=== PATIENT | male | born 1965 | race Caucasian/White ===

== ENCOUNTER 2018-02-25 18:53 | Inpatient (IN) | payer OTHER ==
[~2018-02-25] VITALS: Ht 160 cm; Wt 78.0 kg
[2018-02-25 19:20] VITALS: BP 120/70; PULSE 92; RESP 18; TEMP 99.7; O2SAT 97
[2018-02-25 19:27] VITALS: BP 133/79; PULSE 97; RESP 18; O2SAT 97
[2018-02-25] MEDS ORDERED: SODIUM CHLOR 0.9% 1000 ML INJ 1,000 ML IV SCH (19:43)
[2018-02-25] MEDS ORDERED: ONDANSETRON ODT 4 MG TAB PO ONE (19:45)
[2018-02-25] MEDS ORDERED: SODIUM CHLORIDE 0.9% FLUSH 10 ML FLUSH IV FLUSH PRN ×2 (19:45→23:00)
[2018-02-25] MEDS ORDERED: MORPHINE SULFATE 4 MG/ML INJ IV PUSH ONE (19:45)
--- NOTE | 2018-02-25 19:46 | PD ---
HPI Chief Complaint: Abdominal Pain Time Seen by Provider: 19:24 Travel History International Travel<30 days: No Contact w/Intl Traveler<30days: No Traveled to known affect area: No History of Present Illness HPI This is a 53-year-old male who presents to the emergency department with abdominal pain that started yesterday, severe, sharp, and the lower abdomen, constant, nonradiating associated with some nausea. He took an enema last night thinking maybe he was constipated but he did not produce much stool. PFSH Past Surgical History Other Surgery: Yes (esophagus dilated 4 times.) Social History Alcohol Use: Yes (rarely) Tobacco Use: No Substance Use: No Allergies-Medications (Allergen,Severity, Reaction): Coded Allergies: No Known Allergies (Unverified , 02/25/18) Review of Systems Except as stated in HPI: all other systems reviewed are Neg Physical Exam Narrative GENERAL: Uncomfortable appearing. SKIN: Focused skin assessment warm and dry. HEAD: Atraumatic. Normocephalic. EYES: Pupils equal and round. No injection or drainage. ENT: Moist mucous membranes NECK: Trachea midline. CARDIOVASCULAR: Regular rate and rhythm. No murmur appreciated. RESPIRATORY: Clear to auscultation. Breath sounds equal bilaterally. GASTROINTESTINAL: Abdomen soft, diffusely tender to palpation, worse in the lower abdomen with guarding MUSCULOSKELETAL: No obvious deformities. NEUROLOGICAL: Awake and alert. No obvious cranial nerve deficits. Moving all extremities. PSYCHIATRIC: Appropriate mood and affect; insight and judgment normal. Data Data Last Documented VS Vital Signs Date Time Temp Pulse Resp B/P (MAP) Pulse Ox O2 Delivery O2 Flow Rate FiO2 02/25/18 20:15 20 02/25/18 19:27 97 133/79 (97) 97 Room Air 02/25/18 19:20 99.7 Orders Orders Complete Blood Count With Diff (02/25/18 19:43) Comprehensive Metabolic Panel (02/25/18 19:43) Lipase (02/25/18 19:43) Urinalysis - C+S If Indicated (02/25/18 19:43) Ct Abd/Pel W Iv Contrast(Rout) (02/25/18 19:43) Iv Access Insert/Monitor (02/25/18 19:43) Ecg Monitoring (02/25/18 19:43) Oximetry (02/25/18 19:43) Morphine Inj (Morphine Inj) (02/25/18 19:45) Sodium Chlor 0.9% 1000 Ml Inj (Ns 1000 M (02/25/18 19:43) Sodium Chloride 0.9% Flush (Ns Flush) (02/25/18 19:45) Ondansetron Odt (Zofran Odt) (02/25/18 19:45) Iohexol 350 Inj (Omnipaque 350 Inj) (02/25/18 20:44) Piperacil-Tazo 3.375 Gm Premix (Zosyn 3. (02/25/18 22:15) Consult General Surgery (02/25/18 ) Admit Order (Ed Use Only) (02/25/18 22:54) Piperacil-Tazo 4.5 Gm Premix (Zosyn 4.5 (02/26/18 04:00) Admit To Inpatient (02/25/18 ) Vital Signs (Adult) Q4H (02/25/18 22:52) Activity Oob With Assistance (02/25/18 22:52) Director Medical Affairs / Telemetry .CONTINUOUS (02/25/18 22:52) Intake + Output FIDEL.QSHIFT (02/25/18 22:52) Diet Npo (02/26/18 Breakfast) Sodium Chlor 0.9% 1000 Ml Inj (Ns 1000 M (02/25/18 22:52) Sodium Chloride 0.9% Flush (Ns Flush) (02/25/18 23:00) Sodium Chloride 0.9% Flush (Ns Flush) (02/26/18 09:00) Metoclopramide Inj (Reglan Inj) (02/25/18 23:00) Comprehensive Metabolic Panel (02/26/18 06:00) Complete Blood Count With Diff (02/26/18 06:00) Scd Bilateral/Knee High FIDEL.BID (02/25/18 22:52) Edouard Bilateral/Knee High FIDEL.QSHIFT (02/25/18 23:00) Acetaminophen (Tylenol) (02/25/18 23:00) Docusate Sodium-Senna (Helen-Colace) (02/26/18 09:00) Magnesium Hydroxide Liq (Milk Of Magnesi (02/25/18 23:00) Sennosides (Senokot) (02/25/18 23:00) Bisacodyl Supp (Dulcolax Supp) (02/25/18 23:00) Lactulose Liq (Lactulose Liq) (02/25/18 23:00) Inpatient Certification (02/25/18 ) Morphine Inj (Morphine Inj) (02/25/18 23:00) Morphine Inj (Morphine Inj) (02/25/18 23:00) Labs Laboratory Tests Test 02/25/18 20:07 02/25/18 20:31 White Blood Count 15.5 TH/MM3 Red Blood Count 4.34 MIL/MM3 Hemoglobin 13.4 GM/DL Hematocrit 39.6 % Mean Corpuscular Volume 91.2 FL Mean Corpuscular Hemoglobin 30.8 PG Mean Corpuscular Hemoglobin Concent 33.8 % Red Cell Distribution Width 13.2 % Platelet Count 204 TH/MM3 Mean Platelet Volume 8.0 FL Neutrophils (%) (Auto) 84.3 % Lymphocytes (%) (Auto) 8.2 % Monocytes (%) (Auto) 6.9 % Eosinophils (%) (Auto) 0.1 % Basophils (%) (Auto) 0.5 % Neutrophils # (Auto) 13.1 TH/MM3 Lymphocytes # (Auto) 1.3 TH/MM3 Monocytes # (Auto) 1.1 TH/MM3 Eosinophils # (Auto) 0.0 TH/MM3 Basophils # (Auto) 0.1 TH/MM3 CBC Comment DIFF FINAL Differential Comment Blood Urea Nitrogen 22 MG/DL Creatinine 1.35 MG/DL Random Glucose 97 MG/DL Total Protein 6.8 GM/DL Albumin 3.4 GM/DL Calcium Level 8.4 MG/DL Alkaline Phosphatase 68 U/L Aspartate Amino Transf (AST/SGOT) 8 U/L Alanine Aminotransferase (ALT/SGPT) 21 U/L Total Bilirubin 0.6 MG/DL Sodium Level 140 MEQ/L Potassium Level 3.8 MEQ/L Chloride Level 106 MEQ/L Carbon Dioxide Level 23.8 MEQ/L Anion Gap 10 MEQ/L Estimat Glomerular Filtration Rate 55 ML/MIN Lipase 58 U/L Urine Color YELLOW Urine Turbidity CLEAR Urine pH 5.0 Urine Specific [place] 1.021 Urine Protein NEG mg/dL Urine Glucose (UA) NEG mg/dL Urine Ketones NEG mg/dL Urine Occult Blood SMALL Urine Nitrite NEG Urine Bilirubin NEG Urine Urobilinogen LESS THAN 2 mg/dL Urine Leukocyte Esterase NEG Urine RBC 1 /hpf Urine WBC LESS THAN 1 /hpf Urine Mucus FEW /lpf Microscopic Urinalysis Comment CULT NOT INDICATED MDM Medical Decision Making Medical Screen Exam Complete: Yes Emergency Medical Condition: Yes Interpretation(s) temperature is 99.7, tachycardic leukocytosis 84% neutrophils renal insufficiency urinalysis: no infection Last 24 hours Impressions Abdomen/Pelvis CT 02/25/181942 Signed Impressions: CONCLUSION: 1. Probable sigmoid diverticulitis with some perforation and extraluminal air present. The appendix is also dilated and mildly thickened but may be secondari ly involved rather than an acute appendicitis. No discrete or drainable abscess . 2. Nonobstructing 3 mm right renal calculus. Parapelvic cysts bilaterally. Differential Diagnosis Appendicitis, diverticulitis, colitis, sepsis Narrative Course This is a 53-year-old male who presents to the emergency department with abdominal pain has been worsening over the past few days. He was placed on a monitor and an IV was established. He was given a dose of IV Zosyn. He has leukocytosis on labs. CT demonstrates perforated diverticulitis. Patient was seen by Dr. Calzada with general surgery in the emergency department. He will be admitted to medicine for IV antibiotics and close monitoring. Physician Communication Physician Communication Discussed with Dr. Beaver and Dr. Calzada Diagnosis Primary Impression: Diverticulitis of intestine with perforation Qualified Codes: K57.20 - Diverticulitis of large intestine with perforation and abscess without bleeding Admitting Information Admitting Physician Requests: Admit Aruna Hernandez MD Feb 25, 2018 19:46
[2018-02-25 20:28] LABS: AUTOMATED NEUTROPHIL # 13.1 TH/MM3 (1.8-7.7); BASOPHIL # 0.1 TH/MM3 (0-0.2); BASOPHIL % 0.5 % (0.0-2.0); EOSINOPHIL % 0.1 % (0.0-4.0); HEMATOCRIT 39.6 % (39.0-51.0); HEMOGLOBIN 13.4 GM/DL (13.0-17.0); LYMPH % 8.2 % (9.0-44.0); LYMPHOCYTE # 1.3 TH/MM3 (1.0-4.8); MEAN CELL VOLUME 91.2 FL (80.0-100.0); MEAN CORPUSCULAR HEMOGLOBIN 30.8 PG (27.0-34.0); MEAN CORPUSCULAR HGB CONC 33.8 % (32.0-36.0); MONO % 6.9 % (0.0-8.0); MONOCYTE # 1.1 TH/MM3 (0-0.9); NEUT % 84.3 % (16.0-70.0); PLATELET COUNT 204 TH/MM3 (150-450); RED BLOOD COUNT 4.34 MIL/MM3 (4.50-5.90); RED CELL DISTRIBUTION WIDTH 13.2 % (11.6-17.2); WHITE BLOOD COUNT 15.5 TH/MM3 (4.0-11.0)
[2018-02-25] MEDS ORDERED: IOHEXOL 350 MG/ML 10 ML VIAL (for RAD DIAG) IVCONTRAST ONE (20:44)
[2018-02-25 20:52] LABS: BILIRUBIN, URINE NEG (NEG); BLOOD, URINE SMALL (NEG); GLUCOSE,URINE NEG (NEG); KETONE, URINE NEG (NEG); MUCUS URINE FEW /lpf (OCC); NITRITE,URINE NEG (NEG); URINE COLOR YELLOW (YELLW/STRAW); URINE LEUKOCYTE ESTERASE NEG (NEG)
[2018-02-25 20:52] LABS: ALBUMIN 3.4 GM/DL (3.4-5.0); AST (GOT) 8 U/L (15-37); BICARBONATE 23.8 MEQ/L (21.0-32.0); BLOOD UREA NITROGEN 22 MG/DL (7-18); CALCIUM 8.4 MG/DL (8.5-10.1); CHLORIDE 106 MEQ/L (98-107); CREATININE 1.35 MG/DL (0.60-1.30); GLOMERULAR FILTRATION RATE 55 ML/MIN (>89); GLUCOSE,RANDOM 97 MG/DL (74-106); SODIUM (NA) 140 MEQ/L (136-145)
[2018-02-25 20:53] LABS: ALT (GPT) 21 U/L (12-78)
[2018-02-25 20:55] LABS: ALKALINE PHOSPHATASE 68 U/L (45-117); TOTAL BILIRUBIN ADULT 0.6 MG/DL (0.2-1.0); TOTAL PROTEIN 6.8 GM/DL (6.4-8.2)
--- NOTE | 2018-02-25 21:03 | RADRPT ---
EXAM DATE: 02/25/2018 8:48 PM EDT AGE/SEX: 53 years / Male INDICATIONS: Lower abdominal pain. CLINICAL DATA: This is the patient's initial encounter. Patient reports that signs and symptoms have been present for 1 day and indicates a pain score of 10/10. MEDICAL/SURGICAL HISTORY: . Esophageal stricture . Esophageal dilation ORAL CONTRAST: No oral contrast ingested. RADIATION DOSE: 8.33 CTDI (mGy) COMPARISON: No prior exams available for comparison. TECHNIQUE: Multiple contiguous axial images were obtained through the abdomen and pelvis following b olus infusion of 95 ml Omnipaque 350 (iohexol) nonionic water-soluble contrast as a single exam dos e. No oral contrast ingested. Using automated exposure control and adjustment of the mA and/or kV ac cording to patient size, radiation dose was kept as low as reasonably achievable to obtain optimal di agnostic quality images. DICOM format image data is available electronically for review and comparis on. FINDINGS: Lung bases demonstrate minimal dependent atelectasis. Small hiatal hernia. Mild fatty liver. Spleen, adrenals and pancreas unremarkable. No calcified galls tones or biliary ductal dilatation. 3 mm nonobstructing right renal calculus. Small parapelvic cysts bilaterally. Within the pelvis there is inflammatory change and extraluminal air around the sigmoid colon, probabl y sigmoid diverticulitis. The appendix is visualized and appears to be involved within the inflammato ry process but I believe this is most likely a primary diverticulitis rather than appendicitis. CONCLUSION: 1. Probable sigmoid diverticulitis with some perforation and extraluminal air present. The appendix is also dilated and mildly thickened but may be secondarily involved rather than an acute appendiciti s. No discrete or drainable abscess. 2. Nonobstructing 3 mm right renal calculus. Parapelvic cysts bilaterally. Electronically signed by: Pardeep Reid MD 02/25/2018 9:02 PM EDT
[2018-02-25] MEDS ORDERED: PIPERACIL-TAZO 3.375 GM PREMIX 50 ML IV ONE (22:15)
--- NOTE | 2018-02-25 22:55 | HHI.HP ---
[facility] No Primary Care Physician Admission Diagnosis diverticulitis Diagnoses: (1) SIRS (systemic inflammatory response syndrome) Diagnosis: Principal (2) Perforated diverticulum Diagnosis: Principal (3) Renal insufficiency Diagnosis: Principal Travel History International Travel<30 Days: No Contact w/Intl Traveler <30 Da: No Traveled to Known Affected Are: No History of Present Illness This is a 53-year-old male with a PMH of Esophageal Stricture s/p Dilatation who presented to the ER w/ c/o severe abdominal pain x1 day. States pain is generalized, constant, severe, 10/10, non-radiating, associated w/ nausea, no vomiting. Denies h/o similar symptoms in the past. No fever, chills. On arrival, BP 120/70, HR 92, O2 sat 97% on RA, Temp 99.7. WBC 15.5. Creatinine 1.35, no previous labs for comparison. Lipase normal. UA negative for UTI. CT Abdomen/Pelvis probable sigmoid diverticulitis with perforation, dilated appendix likely secondarily involved. Dr. Calzada consulted. Review of Systems Except as stated in HPI: all other systems reviewed are Neg ROS: 14 point review of systems otherwise negative. Past Family Social History Past Medical History PMH: Esophageal Stricture s/p Dilatation Past Surgical History PAST SURGICAL HISTORY: Right ACL, Esophageal Dilatation Allergies: Coded Allergies: No Known Allergies (Unverified , 02/25/18) Family History PAST FAMILY HISTORY: Reviewed. No h/o DM or CAD Social History PAST SOCIAL HISTORY: Occasional alcohol. Negative for tobacco or drugs. Physical Exam Vital Signs Vital Signs Date Time Temp Pulse Resp B/P (MAP) Pulse Ox O2 Delivery O2 Flow Rate FiO2 02/25/18 20:15 20 02/25/18 19:27 97 18 133/79 (97) 97 Room Air 02/25/18 19:20 99.7 92 18 120/70 (87) 97 Physical Exam PE: GENERAL: Very pleasant middle-aged white male in mild distress due to pain. at bedside. HEENT: PERRLA, EOMI. No scleral icterus or conjunctival pallor. No lid lag or facial droop. CARDIOVASCULAR: Regular rate and rhythm. No obvious murmurs to auscultation. No chest tenderness to palpation. RESPIRATORY: No obvious rhonchi or wheezing. Clear to auscultation. Breath sounds equal bilaterally. GASTROINTESTINAL: Abdomen soft, mild distention, generalized tenderness to palpation. BS normal. MUSCULOSKELETAL: Extremities without clubbing, cyanosis, or edema. No obvious deformities. NEUROLOGICAL: Awake, alert and oriented x4. No focal neurologic deficits. Moving both upper and lower extremities spontaneously. Laboratory Laboratory Tests Test 02/25/18 20:07 02/25/18 20:31 White Blood Count 15.5 Red Blood Count 4.34 Hemoglobin 13.4 Hematocrit 39.6 Mean Corpuscular Volume 91.2 Mean Corpuscular Hemoglobin 30.8 Mean Corpuscular Hemoglobin Concent 33.8 Red Cell Distribution Width 13.2 Platelet Count 204 Mean Platelet Volume 8.0 Neutrophils (%) (Auto) 84.3 Lymphocytes (%) (Auto) 8.2 Monocytes (%) (Auto) 6.9 Eosinophils (%) (Auto) 0.1 Basophils (%) (Auto) 0.5 Neutrophils # (Auto) 13.1 Lymphocytes # (Auto) 1.3 Monocytes # (Auto) 1.1 Eosinophils # (Auto) 0.0 Basophils # (Auto) 0.1 CBC Comment DIFF FINAL Differential Comment Blood Urea Nitrogen 22 Creatinine 1.35 Random Glucose 97 Total Protein 6.8 Albumin 3.4 Calcium Level 8.4 Alkaline Phosphatase 68 Aspartate Amino Transf (AST/SGOT) 8 Alanine Aminotransferase (ALT/SGPT) 21 Total Bilirubin 0.6 Sodium Level 140 Potassium Level 3.8 Chloride Level 106 Carbon Dioxide Level 23.8 Anion Gap 10 Estimat Glomerular Filtration Rate 55 Lipase 58 Urine Color YELLOW Urine Turbidity CLEAR Urine pH 5.0 Urine Specific [place] 1.021 Urine Protein NEG Urine Glucose (UA) NEG Urine Ketones NEG Urine Occult Blood SMALL Urine Nitrite NEG Urine Bilirubin NEG Urine Urobilinogen LESS THAN 2 Urine Leukocyte Esterase NEG Urine RBC 1 Urine WBC LESS THAN 1 Urine Mucus FEW Microscopic Urinalysis Comment CULT NOT INDICATED Result Diagram: 02/25/18200602/25/182006 Caprini VTE Risk Assessment Caprini VTE Risk Assessment: No/Low Risk (score <= 1) Caprini Risk Assessment Model Point Value = 1 Point Value = 2 Point Value = 3 Point Value = 5 Age 41-60 Minor surgery BMI > 25 kg/m2 Swollen legs Varicose veins or History of unexplained or recurrent spontaneous Oral contraceptives or hormone replacement Sepsis (< 1 month) Serious lung disease, including pneumonia (< 1 month) Abnormal pulmonary function Acute myocardial infarction Congestive heart failure (< 1 month) History of inflammatory bowel disease Medical patient at bed rest Age 61-74 Arthroscopic surgery Major open surgery (> 45 min) Laparoscopic surgery (> 45 min) Malignancy Confined to bed (> 72 hours) Immobilizing plaster cast Central venous access Age >= 75 History of VTE Family history of VTE Factor V Leiden Prothrombin [id number] Lupus anticoagulant Anticardiolipin antibodies Elevated serum homocysteine Heparin-induced thrombocytopenia Other congenital or acquired thrombophilia Stroke (< 1 month) Elective arthroplasty Hip, pelvis, or leg fracture Acute spinal cord injury (< 1 month) Prophylaxis Regimen Total Risk Factor Score Risk Level Prophylaxis Regimen 0-1 Low Early ambulation 2 Moderate Order ONE of the following: *Sequential Compression Device (SCD) *Heparin 5000 units SQ BID 3-4 Higher Order ONE of the following medications: *Heparin 5000 units SQ TID *Enoxaparin/Lovenox 40 mg SQ daily (WT < 150 kg, CrCl > 30 mL/min) *Enoxaparin/Lovenox 30 mg SQ daily (WT < 150 kg, CrCl > 10-29 mL/min) *Enoxaparin/Lovenox 30 mg SQ BID (WT < 150 kg, CrCl > 30 mL/min) AND/OR *Sequential Compression Device (SCD) 5 or more Highest Order ONE of the following medications: *Heparin 5000 units SQ TID (Preferred with Epidurals) *Enoxaparin/Lovenox 40 mg SQ daily (WT < 150 kg, CrCl > 30 mL/min) *Enoxaparin/Lovenox 30 mg SQ daily (WT < 150 kg, CrCl > 10-29 mL/min) *Enoxaparin/Lovenox 30 mg SQ BID (WT < 150 kg, CrCl > 30 mL/min) AND *Sequential Compression Device (SCD) Assessment and Plan Problem List: (1) SIRS (systemic inflammatory response syndrome) ICD Code: R65.10 - Systemic inflammatory response syndrome (SIRS) of non- infectious origin without acute organ dysfunction (2) Perforated diverticulum ICD Code: K57.80 - Diverticulitis of intestine, part unspecified, with perforation and abscess without bleeding (3) Renal insufficiency ICD Code: N28.9 - Disorder of kidney and ureter, unspecified Assessment and Plan A/P: 1. SIRS: Temp 99.7, HR 92, WBC 15, Source-Diverticulitis. S/p Zosyn in ER, will continue w/ IV Abx, IVF for hydration. 2. Perforated Diverticulitis: c/o acute onset abdominal pain, CT Abd/Pelvis w / perforated diverticulum and thickened appendix likely secondarily involved, images reviewed by me. Dr. Calzada consulted, evaluated pt in ER, conservative management at this time. NPO, IVF, analgesics/antiemetics as needed. 3. Renal Insufficiency: Creatinine 1.35, no previous labs for comparison, presumably new. IVF for hydration, repeat labs in am. 4. DVT Prophylaxis: SCD/Teds 5. Social work for d/c planning as needed, case discussed w/ ER physician at length, labs/records/imaging reviewed by me. Physician Certification 2 Midnight Certification Type: Admission for Inpatient Services Order for Inpatient Services The services are ordered in accordance with Medicare regulations or non- Medicare payer requirements, as applicable. In the case of services not specified as inpatient-only, they are appropriately provided as inpatient services in accordance with the 2-midnight benchmark. Estimated LOS (days): 2 days is the estimated time the patient will need to remain in the hospital, assuming treatment plan goals are met and no additional complications. Post-Hospital Plan: Not yet determined Vanessa Sultana MD Feb 25, 2018 22:55
[2018-02-25] MEDS ORDERED: LACTULOSE SYRUP 20 GM/30 ML CUP PO PRN (23:00)
[2018-02-25] MEDS ORDERED: METOCLOPRAMIDE HCL 10 MG/2 ML VIAL IV PUSH PRN (23:00)
[2018-02-25] MEDS ORDERED: SENNOSIDES 8.6 MG TAB PO PRN (23:00)
[2018-02-25] MEDS ORDERED: BISACODYL 10 MG SUPP RECTAL PRN (23:00)
[2018-02-25] MEDS ORDERED: MAGNESIUM HYDROXIDE SUSP 30 ML CUP PO PRN (23:00)
[2018-02-25] MEDS: SODIUM CHLOR 0.9% 1000 ML INJ 1,000 ML IV SCH (23:15)
[2018-02-25] MEDS: MORPHINE SULFATE 4 MG/ML INJ IV PUSH PRN (23:15)
[2018-02-25 23:16] VITALS: BP 109/60; PULSE 85; RESP 18; O2SAT 95
[2018-02-26] VITALS (9 sets, daily range): BP systolic 102–118; BP diastolic 55–61; PULSE 71–80; RESP 18–20; TEMP 98–100.9; O2SAT 93–96
[2018-02-26] MEDS: metroNIDAZOLE 500 MG INJ 100 ML IV SCH ×4 (00:49→17:55)
[2018-02-26] MEDS: MORPHINE SULFATE 4 MG/ML INJ IV PUSH PRN ×3 (03:27→16:13)
[2018-02-26] MEDS: PIPERACIL-TAZO 4.5 GM PREMIX 100 ML IV SCH ×4 (04:18→21:43)
[2018-02-26 08:00] LABS: AUTOMATED NEUTROPHIL # 9.1 TH/MM3 (1.8-7.7); BASOPHIL % 0.2 % (0.0-2.0); EOSINOPHIL % 0.1 % (0.0-4.0); HEMATOCRIT 34.9 % (39.0-51.0); HEMOGLOBIN 11.7 GM/DL (13.0-17.0); LYMPH % 7.8 % (9.0-44.0); LYMPHOCYTE # 0.9 TH/MM3 (1.0-4.8); MEAN CELL VOLUME 93.7 FL (80.0-100.0); MEAN CORPUSCULAR HEMOGLOBIN 31.4 PG (27.0-34.0); MEAN CORPUSCULAR HGB CONC 33.5 % (32.0-36.0); MEAN PLATELET VOLUME 7.9 FL (7.0-11.0); MONO % 7.7 % (0.0-8.0); MONOCYTE # 0.8 TH/MM3 (0-0.9); NEUT % 84.2 % (16.0-70.0); PLATELET COUNT 177 TH/MM3 (150-450); RED BLOOD COUNT 3.72 MIL/MM3 (4.50-5.90); RED CELL DISTRIBUTION WIDTH 13.4 % (11.6-17.2); WHITE BLOOD COUNT 10.9 TH/MM3 (4.0-11.0)
[2018-02-26] MEDS: DOCUSATE SODIUM 50 MG/SENNA 8.6 MG TAB PO SCH ×2 (08:01→19:32)
[2018-02-26] MEDS: SODIUM CHLORIDE 0.9% FLUSH 10 ML FLUSH IV FLUSH SCH ×2 (08:01→19:33)
[2018-02-26] MEDS: SODIUM CHLOR 0.9% 1000 ML INJ 1,000 ML IV SCH ×2 (08:02→19:32)
[2018-02-26 08:23] LABS: ALBUMIN 2.6 GM/DL (3.4-5.0); BICARBONATE 24.1 MEQ/L (21.0-32.0); CALCIUM 7.3 MG/DL (8.5-10.1); CREATININE 1.36 MG/DL (0.60-1.30)
[2018-02-26 08:30] LABS: TOTAL BILIRUBIN ADULT 1.4 MG/DL (0.2-1.0); TOTAL PROTEIN 5.8 GM/DL (6.4-8.2)
--- NOTE | 2018-02-26 09:14 | HHI.PR ---
Subjective Subjective Notes Patient feels better today. His pain level which was a 12 on a scale of 1-10 yesterday is now down to about a 6. He denies any fevers. He is interested in trying some clear liquids. Indicates he had a colonoscopy somewhere between the age of 45 and 50. He has a GI doctor at home in [facility] that does upper endoscopy and dilatations due to reflux disease. He thinks he had a episode similar to this about 4 months ago that he struggled through on his own without going to a hospital or getting antibiotics. Objective Vitals/I&O Vital Signs Date Time Temp Pulse Resp B/P (MAP) Pulse Ox O2 Delivery O2 Flow Rate FiO2 02/26/18 08:20 98.3 73 18 102/55 (71) 93 02/25/18 23:16 Room Air Labs Laboratory Tests Test 02/25/18 20:07 02/25/18 20:31 02/26/18 07:10 White Blood Count 15.5 10.9 Red Blood Count 4.34 3.72 Hemoglobin 13.4 11.7 Hematocrit 39.6 34.9 Mean Corpuscular Volume 91.2 93.7 Mean Corpuscular Hemoglobin 30.8 31.4 Mean Corpuscular Hemoglobin Concent 33.8 33.5 Red Cell Distribution Width 13.2 13.4 Platelet Count 204 177 Mean Platelet Volume 8.0 7.9 Neutrophils (%) (Auto) 84.3 84.2 Lymphocytes (%) (Auto) 8.2 7.8 Monocytes (%) (Auto) 6.9 7.7 Eosinophils (%) (Auto) 0.1 0.1 Basophils (%) (Auto) 0.5 0.2 Neutrophils # (Auto) 13.1 9.1 Lymphocytes # (Auto) 1.3 0.9 Monocytes # (Auto) 1.1 0.8 Eosinophils # (Auto) 0.0 0.0 Basophils # (Auto) 0.1 0.0 CBC Comment DIFF FINAL DIFF FINAL Differential Comment Blood Urea Nitrogen 22 17 Creatinine 1.35 1.36 Random Glucose 97 107 Total Protein 6.8 5.8 Albumin 3.4 2.6 Calcium Level 8.4 7.3 Alkaline Phosphatase 68 56 Aspartate Amino Transf (AST/SGOT) 8 9 Alanine Aminotransferase (ALT/SGPT) 21 13 Total Bilirubin 0.6 1.4 Sodium Level 140 142 Potassium Level 3.8 4.0 Chloride Level 106 111 Carbon Dioxide Level 23.8 24.1 Anion Gap 10 7 Estimat Glomerular Filtration Rate 55 55 Lipase 58 Urine Color YELLOW Urine Turbidity CLEAR Urine pH 5.0 Urine Specific [place] 1.021 Urine Protein NEG Urine Glucose (UA) NEG Urine Ketones NEG Urine Occult Blood SMALL Urine Nitrite NEG Urine Bilirubin NEG Urine Urobilinogen LESS THAN 2 Urine Leukocyte Esterase NEG Urine RBC 1 Urine WBC LESS THAN 1 Urine Mucus FEW Microscopic Urinalysis Comment CULT NOT INDICATED Protein Corrected Calcium 8.0 Abdomen: Non-distended, Other (Mild to moderate tenderness to palpation without rebound or guarding.) Extremities: No edema A/P Assessment and Plan Complicated diverticulitis with microperforation appears contained. Patient's white blood cell count and physical exam indicate improvement with antibiotic therapy. I have ordered clear liquids. I discussed with the patient that if he continues to improve he may be able to transition to oral antibiotics and be discharged in the next 24-72 hours. His daughter is having a baby down in [place] tomorrow. He has a flight to return home on Tuesday. He understands he needs to do what he has to do to be cared for. Continue nonoperative therapy. Rodriguez Parra MD Feb 26, 2018 09:14
--- NOTE | 2018-02-26 09:19 | HHI.PR ---
Subjective Remarks Follow up on patient with diverticulitis with perf. Patient seen and examined. He states he is feeling a little better this morning. No fever or chills. Abdominal pain has improved some. No N/V. He is not passing flatus. Urinating without any difficulties. States he had similar episode 4mos ago but was not evaluated. Objective Vitals Vital Signs Date Time Temp Pulse Resp B/P (MAP) Pulse Ox O2 Delivery O2 Flow Rate FiO2 02/26/18 08:20 98.3 73 18 102/55 (71) 93 02/26/18 03:48 18 02/26/18 03:31 98.2 75 18 105/56 (72) 94 02/26/18 00:08 98.2 72 18 118/59 (78) 95 02/25/18 23:56 02/25/18 23:16 85 18 109/60 (76) 95 Room Air 02/25/18 20:15 20 02/25/18 19:27 97 18 133/79 (97) 97 Room Air 02/25/18 19:20 99.7 92 18 120/70 (87) 97 I/O 02/25/18 02/25/18 02/25/18 02/26/18 02/26/18 02/26/18 07:00 15:00 23:00 07:00 15:00 23:00 Intake Total 1000 ml 300 ml 100 ml Output Total 300 ml Balance 1000 ml 300 ml -200 ml Intake Oral 200 ml IV Total 1000 ml 100 ml 100 ml Output Urine Total 300 ml Result Diagram: 02/26/18 0710 02/26/18 0710 Imaging Last Impressions Abdomen/Pelvis CT 02/25/181942 Signed Impressions: CONCLUSION: 1. Probable sigmoid diverticulitis with some perforation and extraluminal air present. The appendix is also dilated and mildly thickened but may be secondari ly involved rather than an acute appendicitis. No discrete or drainable abscess . 2. Nonobstructing 3 mm right renal calculus. Parapelvic cysts bilaterally. Objective Remarks GENERAL: Well developed, well nourished very pleasant middle-aged white male, INAD. Awake and alert. HEENT: PERRLA, EOMI. No scleral icterus or conjunctival pallor. No lid lag or facial droop. Airway patent. MMM. CARDIOVASCULAR: Regular rate and rhythm. No obvious murmurs to auscultation. No chest tenderness to palpation. RESPIRATORY: Nonlabored. No obvious rhonchi or wheezing. Clear to auscultation. Breath sounds equal bilaterally. GASTROINTESTINAL: Abdomen soft, mild distention, +tenderness to palpation lower abdomen. +hypoactive BS. MUSCULOSKELETAL: Extremities without clubbing, cyanosis, or edema. No obvious deformities. NEUROLOGICAL: Awake, alert and oriented x4. CN II-XII grossly intact. No focal neurologic deficits. Moving both upper and lower extremities spontaneously. Normal speech. PSYCHIATRIC: Appropriate mood and affect. Normal judgement and insight. Procedures None A/P Problem List: (1) SIRS (systemic inflammatory response syndrome) ICD Code: R65.10 - Systemic inflammatory response syndrome (SIRS) of non- infectious origin without acute organ dysfunction (2) Perforated diverticulum ICD Code: K57.80 - Diverticulitis of intestine, part unspecified, with perforation and abscess without bleeding (3) Renal insufficiency ICD Code: N28.9 - Disorder of kidney and ureter, unspecified Assessment and Plan 53-year-old male with a PMH of Esophageal Stricture s/p Dilatation who presented to the ER w/ c/o severe abdominal pain x1 day. SIRS: Temp 99.7, HR 92, WBC 15, Source-Diverticulitis. S/p Zosyn in ER WBC down to 10.9 -Continue with IV abx Zosyn and Flagyl -Continue with IVF for hydration Perforated Diverticulitis: c/o acute onset abdominal pain CT Abd/Pelvis w/ perforated diverticulum and thickened appendix likely secondarily involved -Dr. Calzada consulted, evaluated pt in ER, conservative management at this time. Will continue to follow. -diet escalated to clear liquids per GS -analgesics/antiemetics as needed. Renal Insufficiency: Creatinine 1.35, no previous labs for comparison, presumably new. Creatinine 1.36 today UA unremarkable -continue on IVF for hydration -obtain renal US/urine NA and Cr -avoid nephrotoxic agents -continue to monitor kidney function Hypocalcemia Protein corrected calcium 8.42 -give Tums po -repeat CMP in am DVT Prophylaxis: SCD/Teds Discharge Planning Not ready for discharge. Discharge pending clinical improvement and GS clearance. Dora Vu Feb 26, 2018 09:19
--- NOTE | 2018-02-26 10:00 | MB ---
cc: Pardeep Calzada MD DATE: 02/25/2018 REASON FOR CONSULTATION: Microperforation sigmoid colon. HISTORY OF PRESENT ILLNESS: This is a pleasant 53-year-old gentleman who is from out of town. He was down here to visit family. He developed some pain in his left lower quadrant and then to the right lower quadrant. He came to the emergency room. He thinks he had this same episode about 6 weeks or so ago and it got better on its own. A CT revealed a microperforation consistent with diverticulitis. Surgery was consulted. He has [place] a colon[place] about 3 [place] and was told that he had some diverticulosis. PAST MEDICAL HISTORY: He has had problems with esophageal stricture. He had some surgery on his knee, recently had drainage a few days ago. REVIEW OF SYSTEMS: Mainly just abdominal pain. No fevers or chills. No cardiac history, no or endocrine problems. PHYSICAL EXAMINATION: VITAL SIGNS: Temperature was 99.7, pulse of 85, blood pressure 109/60, sats 95. NECK: Supple. CHEST: Clear. HEART: Regular rate. ABDOMEN: Tender mostly at the right lower quadrant. Decreased bowel sounds. No surgical scars. Mild guarding to the right side. EXTREMITIES: Moves all extremities. No clubbing, cyanosis or edema. NEUROLOGIC: He is alert, oriented, somewhat concerned with his medical condition. LABORATORY DATA: White count 15, H and H 13 and 39. Chemistry showed a creatinine of 1.35, BUN 22. Urine is fairly clear. IMAGING: CT scan shows microperforation. Mild dilatation of the appendix thought to be secondary to the diverticulitis. ASSESSMENT: A healthy 53-year-old gentleman who has a bout of diverticulitis with a microperforation. PLAN: At this time, we will treat with antibiotics. If he progresses, then convert to p.o. antibiotics. This was all discussed with the patient. I told him if he declines or becomes more painful or change in his clinical status, he may require exploration with a temporary colostomy. He appeared to understand. Pardeep Calzada MD JDB/TL , 11:54 PM , 09:57 AM
[2018-02-26] MEDS: CALCIUM CARBONATE 500 MG CHEWABLE TAB CHEW SCH ×2 (10:03→19:32)
--- NOTE | 2018-02-26 10:43 | RADRPT ---
EXAM DATE: 02/26/2018 10:34 AM EDT AGE/SEX: 53 years / Male INDICATIONS: Elevated labs. CLINICAL DATA: This is the patient's initial encounter. Patient reports that signs and symptoms have been present for 1 day and indicates a pain score of 6/10. MEDICAL/SURGICAL HISTORY: . Dilation of esophagus. Abdominal pain. . Knee repair. Steroid inje ctions. COMPARISON: No prior exams available for comparison. MEASUREMENTS: Right Kidney:__9.6 x 5.1 x 4.6 cm Left Kidney:__10.1 x 5.4 x 4.6 cm FINDINGS: Right Kidney: Normal echotexture and cortical thickness. No mass or hydronephrosis. Left Kidney: Increased echotexture. No mass or hydronephrosis. Bladder: Within normal limits given the degree of distension. Other: None. CONCLUSION: 1. Kidneys appear unremarkable. 2. No hydronephrosis. Electronically signed by: Memo Estrada MD 02/26/2018 10:42 AM EDT
[2018-02-26] MEDS: ACETAMINOPHEN 325 MG TAB PO PRN (16:10)
--- NOTE | 2018-02-26 16:11 | RADRPT ---
EXAM DATE: 02/26/2018 3:52 PM EDT AGE/SEX: 53 years / Male INDICATIONS: Fever CLINICAL DATA: This is the patient's initial encounter. Patient reports that signs and symptoms have been present for 2 days and indicates a pain score of 0/10. MEDICAL/SURGICAL HISTORY: . Esophageal stricture . Esophageal dilation, diverticulitis None. COMPARISON: No prior exams available for comparison. FINDINGS: There is mild basilar airspace disease. No effusion or pneumothorax. Heart size mildly enlarged. CONCLUSION: Mild basilar airspace disease. Differential diagnosis includes bronchopneumonia. No effusion. Electronically signed by: Pardeep Reid MD 02/26/2018 4:09 PM EDT
[2018-02-26 16:28] LABS: AUTOMATED NEUTROPHIL # 8.2 TH/MM3 (1.8-7.7); BASOPHIL % 0.4 % (0.0-2.0); EOSINOPHIL # 0.1 TH/MM3 (0-0.4); EOSINOPHIL % 0.6 % (0.0-4.0); HEMATOCRIT 35.1 % (39.0-51.0); HEMOGLOBIN 11.8 GM/DL (13.0-17.0); LYMPH % 8.8 % (9.0-44.0); LYMPHOCYTE # 0.9 TH/MM3 (1.0-4.8); MEAN CELL VOLUME 93.4 FL (80.0-100.0); MEAN CORPUSCULAR HEMOGLOBIN 31.3 PG (27.0-34.0); MEAN CORPUSCULAR HGB CONC 33.5 % (32.0-36.0); MEAN PLATELET VOLUME 7.5 FL (7.0-11.0); MONO % 7.7 % (0.0-8.0); MONOCYTE # 0.8 TH/MM3 (0-0.9); NEUT % 82.5 % (16.0-70.0); PLATELET COUNT 172 TH/MM3 (150-450); RED BLOOD COUNT 3.76 MIL/MM3 (4.50-5.90); RED CELL DISTRIBUTION WIDTH 13.4 % (11.6-17.2)
[2018-02-26 16:52] LABS: ALBUMIN 2.7 GM/DL (3.4-5.0); ALT (GPT) 14 U/L (12-78); AST (GOT) 8 U/L (15-37); BLOOD UREA NITROGEN 15 MG/DL (7-18); CALCIUM 7.5 MG/DL (8.5-10.1); CHLORIDE 108 MEQ/L (98-107); CREATININE 1.46 MG/DL (0.60-1.30); GLOMERULAR FILTRATION RATE 51 ML/MIN (>89); GLUCOSE,RANDOM 112 MG/DL (74-106); SODIUM (NA) 141 MEQ/L (136-145)
[2018-02-26 16:53] LABS: ALKALINE PHOSPHATASE 56 U/L (45-117); TOTAL BILIRUBIN ADULT 0.7 MG/DL (0.2-1.0)
[2018-02-27] MEDS: metroNIDAZOLE 500 MG INJ 100 ML IV SCH ×2 (00:14→06:07)
[2018-02-27 00:27] VITALS: BP 116/63; PULSE 73; RESP 18; TEMP 98.7; O2SAT 97
[2018-02-27] MEDS: ACETAMINOPHEN 325 MG TAB PO PRN (02:43)
[2018-02-27] MEDS: MORPHINE SULFATE 4 MG/ML INJ IV PUSH PRN (02:49)
[2018-02-27] MEDS: PIPERACIL-TAZO 4.5 GM PREMIX 100 ML IV SCH ×2 (05:04→08:39)
[2018-02-27] MEDS: SODIUM CHLOR 0.9% 1000 ML INJ 1,000 ML IV SCH (05:05)
[2018-02-27 08:11] LABS: ALBUMIN 2.4 GM/DL (3.4-5.0); ALKALINE PHOSPHATASE 61 U/L (45-117); ALT (GPT) 19 U/L (12-78); AST (GOT) 21 U/L (15-37); BICARBONATE 23.4 MEQ/L (21.0-32.0); BLOOD UREA NITROGEN 12 MG/DL (7-18); CHLORIDE 108 MEQ/L (98-107); CREATININE 1.41 MG/DL (0.60-1.30); GLOMERULAR FILTRATION RATE 53 ML/MIN (>89); GLUCOSE,RANDOM 96 MG/DL (74-106); SODIUM (NA) 140 MEQ/L (136-145); TOTAL PROTEIN 5.8 GM/DL (6.4-8.2)
[2018-02-27] MEDS: SODIUM CHLORIDE 0.9% FLUSH 10 ML FLUSH IV FLUSH SCH (08:37)
[2018-02-27] MEDS: DOCUSATE SODIUM 50 MG/SENNA 8.6 MG TAB PO SCH (08:39)
[2018-02-27] MEDS: CALCIUM CARBONATE 500 MG CHEWABLE TAB CHEW SCH (08:39)
--- NOTE | 2018-02-27 09:40 | HHI.PR ---
cc: Rodriguez Parra MD Subjective Subjective Notes Ambulating in room Feels significantly better today than yesterday Objective Vitals/I&O Vital Signs Date Time Temp Pulse Resp B/P (MAP) Pulse Ox O2 Delivery O2 Flow Rate FiO2 02/27/18 00:27 98.7 73 18 116/63 (80) 97 02/25/18 23:16 Room Air Labs Laboratory Tests Test 02/26/18 16:04 02/27/18 06:45 White Blood Count 10.0 Red Blood Count 3.76 Hemoglobin 11.8 Hematocrit 35.1 Mean Corpuscular Volume 93.4 Mean Corpuscular Hemoglobin 31.3 Mean Corpuscular Hemoglobin Concent 33.5 Red Cell Distribution Width 13.4 Platelet Count 172 Mean Platelet Volume 7.5 Neutrophils (%) (Auto) 82.5 Lymphocytes (%) (Auto) 8.8 Monocytes (%) (Auto) 7.7 Eosinophils (%) (Auto) 0.6 Basophils (%) (Auto) 0.4 Neutrophils # (Auto) 8.2 Lymphocytes # (Auto) 0.9 Monocytes # (Auto) 0.8 Eosinophils # (Auto) 0.1 Basophils # (Auto) 0.0 CBC Comment DIFF FINAL Differential Comment Blood Urea Nitrogen 15 12 Creatinine 1.46 1.41 Random Glucose 112 96 Total Protein 6.0 5.8 Albumin 2.7 2.4 Calcium Level 7.5 8.0 Alkaline Phosphatase 56 61 Aspartate Amino Transf (AST/SGOT) 8 21 Alanine Aminotransferase (ALT/SGPT) 14 19 Total Bilirubin 0.7 1.0 Sodium Level 141 140 Potassium Level 3.8 3.9 Chloride Level 108 108 Carbon Dioxide Level 27.0 23.4 Anion Gap 6 9 Estimat Glomerular Filtration Rate 51 53 Lactic Acid Level 1.2 Date/Time Source Procedure Growth Status 02/26/18 18:00 Blood Peripheral Aerobic Blood Culture Pending Received 02/26/18 18:00 Blood Peripheral Anaerobic Blood Culture Pending Received Cardiovascular: Regular Lungs: Clear Abdomen: Other (mild LLQ tenderness with palpation ) Extremities: No edema A/P Assessment and Plan 53 year old male with complicated diverticulitis with microperforation appears contained -Continue antibiotics---transition to PO -Clear liquids; may be able to advanced based on labs -OOB and mobilize -Advance to regular diet -Antibiotics rx on chart Attending Statement I personally evaluated the patient in his room today. He felt much better especially after having had a bowel movement. He was anxious to get out of the hospital as his daughter is having a baby tomorrow in [place] and he is flying back to [place] on Tuesday. His abdominal exam demonstrated only mild discomfort to palpation. There was no rebound or guarding. His assessment is complicated diverticulitis with microperforation, contained. Improvement on antibiotics. Plan transition to oral antibiotics and if tolerated well discharge home. 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 I asked the manager community relations to copy his chart and get his CT scan on a disc for him to take with him to [place]. He was comfortable with this plan of care. The exam, history, and the medical decision-making described in the above note were completed with the assistance of the mid-level provider. I reviewed and agree with the findings presented. I attest that I had a [id number] encounter with the patient on the same day, and personally performed and documented my assessment and findings in the medical record. Columba [place]/[facility] Feb 27, 2018 09:40 Rodriguez Parra MD Feb 28, 2018 08:11
[2018-02-27] MEDS ORDERED: metroNIDAZOLE 500 MG TAB PO SCH (10:00)
[2018-02-27] MEDS ORDERED: CIPROFLOXACIN 500 MG TAB PO SCH (10:00)
[2018-02-27] MEDS ORDERED: METR-1 PO (10:48)
[2018-02-27] MEDS ORDERED: CIPR-9 PO (10:48)
--- NOTE | 2018-02-27 12:04 | HHI.PR ---
Subjective Remarks Patient says he is feeling well. Reports abdominal pain almost resolved. Says he will follow-up with GI doctor within 1 week. Will strenuous work or avoid heavy lifting. Objective Vital Signs Date Time Temp Pulse Resp B/P (MAP) Pulse Ox O2 Delivery O2 Flow Rate FiO2 02/27/18 00:27 98.7 73 18 116/63 (80) 97 02/26/18 20:43 98.8 71 20 102/57 (72) 96 02/26/18 15:33 100.9 02/26/18 15:20 79 02/26/18 12:10 98.0 75 18 108/61 (77) 95 I/O 02/26/18 02/26/18 02/26/18 02/27/18 02/27/18 02/27/18 07:00 15:00 23:00 07:00 15:00 23:00 Intake Total 300 ml 300 ml 1200 ml 1680 ml Output Total 875 ml Balance 300 ml -575 ml 1200 ml 1680 ml Intake Oral 200 ml 480 ml IV Total 100 ml 300 ml 1200 ml 1200 ml Output Urine Total 875 ml # Voids 3 Result Diagram: 02/26/18 1604 02/27/18 0645 Objective Remarks GENERAL: She is sitting up on edge of bed. Dressed. Appears comfortable. And oriented 4. SKIN: Warm and dry. HEAD: Normocephalic. EYES: No scleral icterus. No injection or drainage. NECK: Supple, trachea midline. No JVD. CARDIOVASCULAR: Regular rate and rhythm without murmurs, gallops, or rubs. RESPIRATORY: Breath sounds equal bilaterally. No accessory muscle use. GASTROINTESTINAL: Abdomen soft, non-tender, nondistended. Positive bowel sounds. MUSCULOSKELETAL: No cyanosis, or edema. BACK: Nontender without obvious deformity. No CVA tenderness. A/P Assessment and Plan 53-year-old male with a PMH of Esophageal Stricture s/p Dilatation who presented to the ER w/ c/o severe abdominal pain x1 day. //Sepsis on admission: Temp 99.7, HR 92, WBC 15, Source-Diverticulitis. S/p Zosyn in ER WBC down to 10.9 -Continue with IV abx Zosyn and Flagyl -Continue with IVF for hydration //Perforated Diverticulitis: c/o acute onset abdominal pain CT Abd/Pelvis w/ perforated diverticulum and thickened appendix likely secondarily involved -Dr. Calzada consulted, evaluated pt in ER, conservative management at this time. Will continue to follow. -diet escalated to clear liquids per GS -analgesics/antiemetics as needed. = Patient cleared by general surgery for discharge. 14 days of Cipro and Flagyl. //Renal Insufficiency: Creatinine 1.35, no previous labs for comparison, presumably new. Creatinine 1.36 today UA unremarkable -continue on IVF for hydration -obtain renal US/urine NA and Cr -avoid nephrotoxic agents -continue to monitor kidney function = Renal function overall stable. Creatinine 1.4. Follow with primary care. //Hypocalcemia Protein corrected calcium 8.42 -give Tums po -repeat CMP in am = Calcium 8.0. Corrected calcium 9.2. Normal DVT Prophylaxis: SCD/Teds Discharge Planning Discharge home when tolerates lunch. Antibiotics to complete treatment course. Follow-up with GI as outpatient. Joshua Boudreaux MD Feb 27, 2018 12:04
[2018-02-27] MEDS ORDERED: MIRA3350 PO (12:05)
--- NOTE | 2018-02-27 12:09 | HHI.DS ---
Discharge Summary Admission Date Feb 25, 2018 at 22:55 Discharge Date: Feb 27, 2018 Admitting Diagnosis diverticulitis (1) SIRS (systemic inflammatory response syndrome) ICD Code: R65.10 - Systemic inflammatory response syndrome (SIRS) of non- infectious origin without acute organ dysfunction (2) Perforated diverticulum ICD Code: K57.80 - Diverticulitis of intestine, part unspecified, with perforation and abscess without bleeding (3) Renal insufficiency ICD Code: N28.9 - Disorder of kidney and ureter, unspecified Procedures None Brief History - From Admission This is a 53-year-old male with a PMH of Esophageal Stricture s/p Dilatation who presented to the ER w/ c/o severe abdominal pain x1 day. States pain is generalized, constant, severe, 10/10, non-radiating, associated w/ nausea, no vomiting. Denies h/o similar symptoms in the past. No fever, chills. On arrival, BP 120/70, HR 92, O2 sat 97% on RA, Temp 99.7. WBC 15.5. Creatinine 1.35, no previous labs for comparison. Lipase normal. UA negative for UTI. CT Abdomen/Pelvis probable sigmoid diverticulitis with perforation, dilated appendix likely secondarily involved. Dr. Calzada consulted. CBC/BMP: 02/26/18 1604 02/27/18 0645 Significant Findings Laboratory Tests Test 02/25/18 20:07 02/25/18 20:31 02/26/18 07:10 02/26/18 16:04 White Blood Count 15.5 TH/MM3 (4.0-11.0) Red Blood Count 4.34 MIL/MM3 (4.50-5.90) 3.72 MIL/MM3 (4.50-5.90) 3.76 MIL/MM3 (4.50-5.90) Neutrophils (%) (Auto) 84.3 % (16.0-70.0) 84.2 % (16.0-70.0) 82.5 % (16.0-70.0) Lymphocytes (%) (Auto) 8.2 % (9.0-44.0) 7.8 % (9.0-44.0) 8.8 % (9.0-44.0) Neutrophils # (Auto) 13.1 TH/MM3 (1.8-7.7) 9.1 TH/MM3 (1.8-7.7) 8.2 TH/MM3 (1.8-7.7) Monocytes # (Auto) 1.1 TH/MM3 (0-0.9) Blood Urea Nitrogen 22 MG/DL (7-18) Creatinine 1.35 MG/DL (0.60-1.30) 1.36 MG/DL (0.60-1.30) 1.46 MG/DL (0.60-1.30) Calcium Level 8.4 MG/DL (8.5-10.1) 7.3 MG/DL (8.5-10.1) 7.5 MG/DL (8.5-10.1) Aspartate Amino Transf (AST/SGOT) 8 U/L (15-37) 9 U/L (15-37) 8 U/L (15-37) Estimat Glomerular Filtration Rate 55 ML/MIN (>89) 55 ML/MIN (>89) 51 ML/MIN (>89) Lipase 58 U/L (73-393) Urine Occult Blood SMALL (NEG) Urine Mucus FEW /lpf (OCC) Hemoglobin 11.7 GM/DL (13.0-17.0) 11.8 GM/DL (13.0-17.0) Hematocrit 34.9 % (39.0-51.0) 35.1 % (39.0-51.0) Lymphocytes # (Auto) 0.9 TH/MM3 (1.0-4.8) 0.9 TH/MM3 (1.0-4.8) Random Glucose 107 MG/DL (74-106) 112 MG/DL (74-106) Total Protein 5.8 GM/DL (6.4-8.2) 6.0 GM/DL (6.4-8.2) Albumin 2.6 GM/DL (3.4-5.0) 2.7 GM/DL (3.4-5.0) Total Bilirubin 1.4 MG/DL (0.2-1.0) Chloride Level 111 MEQ/L (98-107) 108 MEQ/L (98-107) Protein Corrected Calcium 8.0 MG/DL (8.5-10.1) Test 02/27/18 06:45 Creatinine 1.41 MG/DL (0.60-1.30) Total Protein 5.8 GM/DL (6.4-8.2) Albumin 2.4 GM/DL (3.4-5.0) Calcium Level 8.0 MG/DL (8.5-10.1) Chloride Level 108 MEQ/L (98-107) Estimat Glomerular Filtration Rate 53 ML/MIN (>89) Imaging Last Impressions Renal Ultrasound 02/26/18 0000 Signed Impressions: CONCLUSION: 1. Kidneys appear unremarkable. 2. No hydronephrosis. Chest X-Ray 02/26/18 0000 Signed Impressions: CONCLUSION: Mild basilar airspace disease. Differential diagnosis includes bronchopneumonia . No effusion. Abdomen/Pelvis CT 02/25/18 194 Signed Impressions: CONCLUSION: 1. Probable sigmoid diverticulitis with some perforation and extraluminal air present. The appendix is also dilated and mildly thickened but may be secondari ly involved rather than an acute appendicitis. No discrete or drainable abscess . 2. Nonobstructing 3 mm right renal calculus. Parapelvic cysts bilaterally. PE at Discharge GENERAL: Well developed, well nourished very pleasant middle-aged white male, INAD. Awake and alert. HEENT: PERRLA, EOMI. No scleral icterus or conjunctival pallor. No lid lag or facial droop. Airway patent. MMM. CARDIOVASCULAR: Regular rate and rhythm. No obvious murmurs to auscultation. No chest tenderness to palpation. RESPIRATORY: Nonlabored. No obvious rhonchi or wheezing. Clear to auscultation. Breath sounds equal bilaterally. GASTROINTESTINAL: Abdomen soft, mild distention, +tenderness to palpation lower abdomen. +hypoactive BS. MUSCULOSKELETAL: Extremities without clubbing, cyanosis, or edema. No obvious deformities. NEUROLOGICAL: Awake, alert and oriented x4. CN II-XII grossly intact. No focal neurologic deficits. Moving both upper and lower extremities spontaneously. Normal speech. PSYCHIATRIC: Appropriate mood and affect. Normal judgement and insight. Hospital Course Patient admitted with sepsis, CT abdomen above showing diverticulitis with perforation. General surgery was consulted. Patient was managed with broad- spectrum antibiotics with improvement. Patient also with renal function slightly impaired with creatinine 1.4. Creatinine stayed stable around 1.4 during admission. Patient had improvement in pain, was cleared by general surgery for discharge. Patient will be discharged on 14 day course of Cipro, Flagyl. He will be following up with aids counselor as outpatient. Patient is to follow-up with primary care doctor to monitor kidney function. For problem based summary from most recent progress note, please see below. 53-year-old male with a PMH of Esophageal Stricture s/p Dilatation who presented to the ER w/ c/o severe abdominal pain x1 day. //Sepsis on admission: Temp 99.7, HR 92, WBC 15, Source-Diverticulitis. S/p Zosyn in ER WBC down to 10.9 -Continue with IV abx Zosyn and Flagyl -Continue with IVF for hydration //Perforated Diverticulitis: c/o acute onset abdominal pain CT Abd/Pelvis w/ perforated diverticulum and thickened appendix likely secondarily involved -Dr. Calzada consulted, evaluated pt in ER, conservative management at this time. Will continue to follow. -diet escalated to clear liquids per GS -analgesics/antiemetics as needed. = Patient cleared by general surgery for discharge. 14 days of Cipro and Flagyl. //Renal Insufficiency: Creatinine 1.35, no previous labs for comparison, presumably new. Creatinine 1.36 today UA unremarkable -continue on IVF for hydration -obtain renal US/urine NA and Cr -avoid nephrotoxic agents -continue to monitor kidney function = Renal function overall stable. Creatinine 1.4. Follow with primary care. //Hypocalcemia Protein corrected calcium 8.42 -give Tums po -repeat CMP in am = Calcium 8.0. Corrected calcium 9.2. Normal DVT Prophylaxis: SCD/Teds Discharge Planning Discharge home when tolerates lunch. Antibiotics to complete treatment course. Follow-up with GI as outpatient. Pt Condition on Discharge: Good Discharge Disposition: Discharge Home Discharge Time: > 30 minutes Discharge Instructions DIET: Follow Instructions for: As Tolerated, No Restrictions, Low Residue Diet Activities you can perform: Regular-No Restrictions Follow up Referrals: Gastroenterology - 1 Week PCP Follow-up - 1 Week New Medications: Polyethylene Glycol 3350 Powder (Miralax Powder) 17 Gm Powd 17 GM PO DAILY for Constipation, #1 CAN 0 Refills Mix and dissolve one measuring cap-ful (17 grams) in water or juice. Ciprofloxacin (Cipro) 500 Mg Tab 500 MG PO Q12HR for Infection for 14 Days, TAB Metronidazole (Flagyl) 500 Mg Tab 500 MG PO Q8H for Infection for 14 Days, #42 TAB Joshua Boudreaux MD Feb 27, 2018 12:09
== END 2018-02-27 12:40 | disposition home or self-care (01) | DRG 872 ==
LOC: NEPE 18:53 → NEDA 22:55 → NEPHCDU 23:56 → N07B 02-26 16:58
PROVIDERS: ADMIT Internal Medicine; ATTEND Internal Medicine
DX: A41.9 Sepsis, unspecified organism (principal); K57.20 Diverticulitis of large intestine with perforation and abscess without bleeding; K21.9 Gastro-esophageal reflux disease without esophagitis; E83.51 Hypocalcemia; N28.9 Disorder of kidney and ureter, unspecified
CPT/HCPCS: 71045; 74177; 76775; 80053; 81001; 83605; 83690; 85025; 87040; 94150; 96361; 96365; 96375; J2270; J2543; J2765; J7030; Q9967